=== PATIENT | female | born 1985 | race Two or more races ===

== ENCOUNTER 2020-08-13 08:57 | Emergency (ER) | payer BC ==
[2020-08-13 09:07] VITALS: BP 124/90; PULSE 96; TEMP 97.9; BMI 24.0
[2020-08-13] MEDS ORDERED: DEXTROSE 5%-NORMAL SALINE 1,000 ML IV ONE (09:46)
[2020-08-13] MEDS ORDERED: METOCLOPRAMIDE HCL INJECTION 10 MG/2 ML VIAL IVPB ONE (09:46)
[2020-08-13] MEDS ORDERED: DICYCLOMINE HCL 20 MG TABLET PO ONE (09:46)
[2020-08-13] MEDS ORDERED: FAMOTIDINE 20 MG/50 ML IVPB 20 MG/50 ML MG IVPB ONE ×2 (10:00→10:08)
[2020-08-13] MEDS ORDERED: DICYCLOMINE HCL 10 MG CAPSULE ONE (10:07)
[2020-08-13] MEDS ORDERED: METOCLOPRAMIDE HCL INJECTION 10 MG/2 ML VIAL ONE (10:08)
[2020-08-13] MEDS ORDERED: DEXTROSE 5%-0.45% SALINE 1,000 ML IV SCH (10:15)
[2020-08-13 10:23] LABS: BASO % 0.7 % (0-2.0); EOS % 0.5 % (0-4.5); HEMATOCRIT 41.5 % (32.4-45.2); HEMOGLOBIN 14.4 GM/dL (10.7-15.3); LYMPH % 24.7 % (8-40); MCH 29.3 pg (25.7-33.7); MCHC 34.7 g/dl (32.0-36.0); MEAN CELL VOLUME 84.4 fl (80-96); MONO % 5.8 % (3.8-10.2); NEUT % 68.3 % (42.8-82.8); PLATELET COUNT 354 K/MM3 (134-434); RBC 4.92 M/mm3 (3.60-5.2); RDW 13.1 % (11.6-15.6); WHITE BLOOD COUNT 8.2 K/mm3 (4.0-10.0)
[2020-08-13 10:38] LABS: POTASSIUM 4.1 mmol/L (3.5-5.1)
[2020-08-13 10:40] LABS: CALCIUM 9.3 mg/dL (8.5-10.1)
[2020-08-13 10:41] LABS: ALBUMIN 4.1 g/dl (3.4-5.0); BLOOD UREA NITROGEN 17.6 mg/dL (7-18); MAGNESIUM 2.4 mg/dL (1.8-2.4)
[2020-08-13 10:44] LABS: CREATININE 0.8 mg/dL (0.55-1.3)
[2020-08-13 10:45] LABS: BILIRUBIN,TOTAL 0.4 mg/dL (0.2-1); TOT PROT 7.9 g/dl (6.4-8.2)
[2020-08-13 11:05] LABS: EPI CELLS 17 /uL (0-25.1); HYALINE CASTS 1 /uL (0-3.1); PH,URINE 5.5 (5.0-8.0); URINE APPEARANCE CLEAR; URINE BACTERIA 183 /uL (0-1359); URINE BILIRUBIN NEGATIVE (NEGATIVE); URINE COLOR YELLOW; URINE GLUCOSE (UA) NEGATIVE (NEGATIVE); URINE KETONE 3+ (NEGATIVE); URINE LEUK ESTERASE NEGATIVE (NEGATIVE); URINE NITRITE NEGATIVE (NEGATIVE); URINE PROTEIN TRACE (NEGATIVE); URINE RBC 443 /uL (0-23.9); URINE UROBILINOGEN 0.2 mg/dL (0.2-1.0); URINE WBC 15 /uL (0-25.8)
[2020-08-13] MEDS ORDERED: LACTATED RINGERS SOLUTION 1000 ML INFUS.BAG IV ONE (11:12)
== END 2020-08-13 12:58 | disposition home or self-care (01) ==
LOC: JER 08:57
PROC: 3E033GC Introduction of Other Therapeutic Substance into Peripheral Vein, Percutaneous Approach (ICD-10-PCS; principal; 2020-08-13)
PROC: 3E033GC Introduction of Other Therapeutic Substance into Peripheral Vein, Percutaneous Approach (ICD-10-PCS; 2020-08-13)
PROC: 3E033GC Introduction of Other Therapeutic Substance into Peripheral Vein, Percutaneous Approach (ICD-10-PCS; 2020-08-13)
DX: K52.9 Noninfective gastroenteritis and colitis, unspecified (principal); R19.7 Diarrhea, unspecified; R11.2 Nausea with vomiting, unspecified
CPT/HCPCS: 36415; 76705-TC; 80053; 81003; 83690; 83735; 84703; 85025; 87086; 99284-25

== ENCOUNTER 2021-07-03 15:18 | Emergency (ER) | payer BC ==
[2021-07-03 15:41] VITALS: BP 143/96; PULSE 103; TEMP 98.2; BMI 25.0
[2021-07-04 12:08] LABS: SARS-CoV-2 NAA Not Detected (Not Detected)
== END 2021-07-03 16:12 | disposition home or self-care (01) ==
LOC: FER 15:18
DX: R51.9 Headache, unspecified (principal)
CPT/HCPCS: 70450-TC; 99283-25; C9803; U0003; U0005